=== PATIENT | male | born 1975 | race Caucasian/White ===

== ENCOUNTER 2018-11-11 16:08 | Emergency (ER) | payer SELFPAY ==
[~2018-11-11] VITALS: Ht 167.6 cm; Wt 77.6 kg
[2018-11-11 17:01] VITALS: BP 134/86
[2018-11-11] MEDS ORDERED: BUPIVACAINE 0.5 % PF 150 MG/30 ML VIAL ONE (17:44)
[2018-11-11] MEDS ORDERED: BUPIVACAINE HCL/PF 50 MG/10 ML VIAL IJ ONE (18:00)
== END 2018-11-11 20:11 | disposition home or self-care (01) ==
LOC: ER 16:15
DX: L60.0 Ingrowing nail (principal); L03.031 Cellulitis of right toe
CPT/HCPCS: 11730; 99284; A4606; A6402; J3490; Z7610